=== PATIENT | female | born 1935 | race Caucasian/White ===

== ENCOUNTER 2022-08-22 16:42 | Emergency (ER) | payer MEDICARE, MEDICAID ==
[~2022-08-22] VITALS: Ht 149.9 cm; Wt 44.5 kg
[2022-08-22] MEDS ORDERED: COLACE100 MG PO (21:41)
[2022-08-22] MEDS ORDERED: ULTRAM50 MG PO (21:41)
[2022-08-22] MEDS ORDERED: CEPHALEXIN500 M1 PO (21:41)
== END 2022-08-22 22:35 | disposition home or self-care (01) ==
LOC: ED 16:42
PROC: 0T9B70Z Drainage of Bladder with Drainage Device, Via Natural or Artificial Opening (ICD-10-PCS; principal; 2022-08-22)
DX: K59.00 Constipation, unspecified (principal); M79.672 Pain in left foot; N39.0 Urinary tract infection, site not specified; I10 Essential (primary) hypertension; F17.200 Nicotine dependence, unspecified, uncomplicated
CPT/HCPCS: 36415; 51701; 71045; 73630; 80053; 81001; 85025; 99283-25; A9270